=== PATIENT | male | born 1935 | race Caucasian/White ===

== ENCOUNTER 2022-11-11 20:12 | Emergency (ER) | payer MEDICARE ==
[~2022-11-11] VITALS: Ht 170.2 cm; Wt 54.4 kg
[2022-11-11] MEDS ORDERED: ASPIRINCHW 81MG PO (20:40)
[2022-11-11] MEDS ORDERED: LIPITOR80 M1 PO (20:40)
[2022-11-11] MEDS ORDERED: HYDROCHLOROT25 MG PO (20:41)
[2022-11-11] MEDS ORDERED: TAMSULOSIN0.4 MG PO (20:42)
[2022-11-11] MEDS ORDERED: PLAVIX75 MG PO (20:42)
[2022-11-11] MEDS ORDERED: TOPROL XL25 M1 PO (20:42)
[2022-11-11] MEDS ORDERED: METFORMIN500 M2 PO (20:42)
[2022-11-11] MEDS ORDERED: LYRICA50 MG PO (20:43)
[2022-11-11] MEDS ORDERED: OMEGA 31000 MG PO (20:44)
[2022-11-11] MEDS ORDERED: KLOR-CON M1010 MEQ PO (20:51)
[2022-11-11 21:24] LABS: BASO% 0.3 % (0-3); EOS% 3.3 % (0-8); HEMATOCRIT 36.5 % (39.0-50.0); HEMOGLOBIN 11.7 g/dl (14.0-18.0); IMMATURE GRANULOCYTES 0.3 % (0.0-5.0); LYMPH% 11.7 % (15-41); MEAN CELL VOLUME 97.1 fL CALC (80.0-100.0); MEAN CORPUSCULAR HGB 31.1 pG CALC (26.0-32.0); MEAN CORPUSCULAR HGB CONC 32.1 g/dL CAL (32.0-36.0); MONO% 7.6 % (2-13); NEUT# 8.5 thou/uL (1.82-7.42); NEUT% 76.8 % (42-76); RED BLOOD COUNT 3.76 mill/uL (4.70-6.10); RED CELL DISTRI WIDTH 13.3 % (11.5-15.5)
[2022-11-11 21:37] LABS: ALBUMIN 3.9 g/dL (3.2-5.0); BILIRUBIN, TOTAL 1.3 mg/dL (0.2-1.3); CREATININE 1.4 mg/dL (0.7-1.3); TOTAL PROTEIN 6.5 g/dL (6.3-8.2)
[2022-11-12 02:40] VITALS: BP 146/81
== END 2022-11-12 02:40 | disposition short-term general hospital (02) ==
LOC: ED 20:12
PROVIDERS: Emergency Medicine
DX: S72.012A Unspecified intracapsular fracture of left femur, initial encounter for closed fracture (principal); I10 Essential (primary) hypertension; E11.9 Type 2 diabetes mellitus without complications; W18.30XA Fall on same level, unspecified, initial encounter; Z95.5 Presence of coronary angioplasty implant and graft; Z95.2 Presence of prosthetic heart valve; Z79.84 Long term (current) use of oral hypoglycemic drugs